=== PATIENT | female | born 1970 | race Two or more races ===

== ENCOUNTER 2022-07-28 01:14 | Emergency (ER) | payer BC ==
[~2022-07-28] VITALS: Ht 167.6 cm; Wt 90.7 kg
[2022-07-28] MEDS ORDERED: KETO10TA2 PO (04:15)
[2022-07-28] MEDS ORDERED: CEPHALEXIN500 MG PO (04:15)
== END 2022-07-28 04:34 ==
LOC: ER 01:14
DX: R22.0 Localized swelling, mass and lump, head (principal); Z91.013 Allergy to seafood